=== PATIENT | male | born 1955 | race Caucasian/White ===

== ENCOUNTER 2024-01-26 12:55 | Emergency (ER) | payer MEDICARE ==
[~2024-01-26] VITALS: Ht 180.3 cm; Wt 106.6 kg
--- NOTE | 2024-01-26 13:15 | ERN ---
ED Note History of Present Illness Stated Complaint: DIZZINESS Chief Complaint: Dizzy/Light Headed Time Seen by MD: 12:58 Dictation: PATIENT IS A 68-YEAR-OLD MALE COMING IN TODAY WITH HIS WITH COMPLAINTS OF HEART ARRHYTHMIA, PROBABLY MY ATRIAL FIBRILLATION ACTING UP AT MIDNIGHT LAST NIGHT. HE ALSO STATES HIS CALLED HIM MILD DIZZINESS HOWEVER HE IS NEUROLOGICALLY INTACT WITH GAIT STEADY TO ROOM 10. NO CHEST PAIN NO BACK PAIN NO SOB NO EDEMA AT THIS TIME. HE IS ALREADY ON METOPROLOL 25 MG B.I.D. FROM HIS BREWING TECHNICIAN'S IN [place] NO LOCAL DOCTOR, STATES HE IS A [place]. HISTORY OF PACEMAKER Allergies: Coded Allergies: No Known Drug Allergies (Unverified Allergy, Unknown, 01/26/24) Past Medical History Past Medical History: A-Fib, Hypothyroid Additional Past Medical Hx: PACEMAKER, BILAT KNEE REPLACEMENT, SLEEP APNEA Surgical History: Other Surgical History Other: INGUINAL HERNIA, AAA RN Note Reviewed/Agreed w/PFSH: Yes Review of System Dictation CONSTITUTIONAL: NEGATIVE EXCEPT FOR HPI HEAD/FACE: NEGATIVE EXCEPT FOR HPI EENT: NEGATIVE EXCEPT FOR HPI RESPIRATORY: NEGATIVE EXCEPT FOR HPI ATRIAL FIB GASTROINTESTINAL/ABDOMINAL: NEGATIVE EXCEPT FOR HPI GENITOURINARY: NEGATIVE EXCEPT FOR HPI MUSCULOSKELETAL: NEGATIVE EXCEPT FOR HPI INTEGUMENTARY: NEGATIVE EXCEPT FOR HPI NEUROLOGICAL/PSYCH: NEGATIVE EXCEPT FOR HPI DIZZINESS HEMATOLOGIC/LYMPHATIC: NEGATIVE EXCEPT FOR HPI ALL SYSTEMS NEGATIVE, EXCEPT NOTED ABOVE. 13 POINT REVIEW OF SYSTEMS ASSESSED AND ALL NEGATIVE EXCEPT FOR ABOVE. Initial Vital Sign VS Vital Signs Date Time Temp Pulse Resp B/P (MAP) Pulse Ox O2 Delivery O2 Flow Rate FiO2 01/26/24 12:57 98.2 65 16 100/66 96 Room Air 01/26/24 13:16 0 21 Physical Exam Dictation VITAL SIGNS REVIEWED GENERAL APPEARANCE: ALERT, ORIENTED X 3, NO ACUTE DISTRESS, WELL DEVELOPED, NOURISHED. HEAD AND FACE: NON-TRAUMATIC. EYES: PERRL, PINK CONJUNCTIVAS, EYELID NO TRAUMA, ANTERIOR CHAMBER WITH ARCUS SENILIS. EARS: PINNAS INTACT AND NO SIGNS OF TRAUMA OR ERYTHEMA EAR CANALS CLEAR AND NO DISCHARGE TM NO ERYTHEMA NOSE: NO DISCHARGE, NO BLEEDING. OROPHARYNX: MOUTH NORMAL, TONGUE PINK, PHARYNX CLEAR,NO ERYTHEMA, TONSILS NO EXUDATES, NO ABSCESSES NOTED, MUCOUS MEMBRANE MOIST NECK: SUPPLE, NON-TENDER, NO THYROMEGALY, NO MASSES, NO JVD, NO BRUITS BREAST:DEFERRED CHEST:NO TENDERNESS, NO CREPITUS, NO PARADOXICAL MOVEMENT, NO RETRACTIONS LUNGS:CLEAR, WELL-VENTILATED, SYMMETRIC, NO RALES, NO WHEEZING, NO RHONCHI, NO STRIDOR, GOOD BREATH SOUNDS BILATERALLY HEART: REGULAR, NO MURMUR, NO GALLOPS VASCULAR: NO PERIPHERAL EDEMA, ABDOMEN: SOFT, POSITIVE BOWEL SOUNDS, NONDISTENDED, NO GUARDING, NONTENDER, NO REBOUND, NO MASSES NO HEPATOMEGALY, NO SPLENOMEGALY, NO MOREAU'S SIGN, NO HERNIAS. RECTAL: DEFERRED GENITAL: DEFERRED NEUROLOGICAL: NORMAL SPEECH, MOTOR FUNCTION INTACT, SENSORY FUNCTION INTACT NIH IS 0 MUSCULOSKELETAL: NECK NONTENDER, FULL RANGE OF MOTION, BACK NONTENDER, FULL RANGE OF MOTION, EXTREMITIES: NONTENDER, FULL RANGE OF MOTION SKIN: COLOR PINK, DRY, NO TURGOR, NO RASH, NO LACERATIONS, NO ABRASIONS, NO CONTUSIONS. LYMPHATIC: DEFERRED Results (Laboratory/Radiology) Laboratory/Radiology Laboratory Tests Test 01/26/24 13:15 White Blood Count 7.8 K/uL (4.8-10.8) Red Blood Count 4.44 MIL/uL (4.50-6.20) L Hemoglobin 14.5 g/dL (14.0-18.0) Hematocrit 42.0 % (42-54) Mean Corpuscular Volume 94.6 fL (79-99) Mean Corpuscular Hemoglobin 32.7 pg (27.0-33.0) Mean Corpuscular Hemoglobin Concent 34.5 g/dL (32.0-36.0) Red Cell Distribution Width 13.0 % (11.0-15.5) Platelet Count 233 K/uL (130-400) Mean Platelet Volume 9.4 fL (7.5-10.5) Immature Granulocyte % (Auto) 0.1 % (0-1) Neutrophils (%) (Auto) 64.7 % (40.0-77.0) Lymphocytes (%) (Auto) 21.1 % (21.0-51.0) Monocytes (%) (Auto) 11.1 % (3.0-13.0) Eosinophils (%) (Auto) 2.2 % (0.0-8.0) Basophils (%) (Auto) 0.8 % (0.0-5.0) Neutrophils # (Auto) 5.0 K/uL (1.8-7.7) Lymphocytes # (Auto) 1.6 K/uL (1.0-4.8) Monocytes # (Auto) 0.9 K/uL (0.1-1.0) Eosinophils # (Auto) 0.17 K/uL (0.00-0.70) Basophils # (Auto) 0.06 K/uL (0.00-0.20) Absolute Immature Granulocyte (auto 0.01 K/uL (0-1) Nucleated Red Blood Cells 0.0 % (0.0-0.19) Sodium Level 133 mmol/L (136-145) L Potassium Level 4.2 mmol/L (3.5-5.1) Chloride Level 100 mmol/L (101-111) L Carbon Dioxide Level 30 mmol/L (21-32) Blood Urea Nitrogen 19 mg/dL (7-18) H Creatinine 1.0 mg/dL (0.5-1.3) Glomerular Filtration Rate Calc 81 mL/min (>90) Random Glucose 100 mg/dL (70-105) Total Calcium 9.4 mg/dL (8.5-10.1) Magnesium Level 2.10 mg/dL (1.80-2.40) Troponin I High Sensitivity < 4 ng/L (4-75) L B-Type Natriuretic Peptide 137 pg/mL (0-100) H INDICATION: SHORTNESS A BREATH. HISTORY OF ATRIAL FIBRILLATION TECHNIQUE: CHEST 1VW COMPARISON: None FINDINGS/IMPRESSION: Prominent bilateral interstitial markings which may represent bronchitis or vascular congestion in the proper clinical setting. Left-sided pacemaker is seen. Cardiac silhouette is within normal limits. Mild degenerative changes of the spine. The visualized upper abdomen appears unremarkable. Labs Reviewed?: Yes ED Course ED Course Orders Procedure Category Date Status Time Cbc With Differential LAB 01/26/24 Complete 13:10 B-Type Natriuretic LAB 01/26/24 Complete Peptide 13:10 Chest 1vw RAD 01/26/24 Resulted 13:10 12 Lead Ekg Tracing- EKG 01/26/24 Resulted Technical 13:10 Magnesium LAB 01/26/24 Complete 13:10 Troponin I High LAB 01/26/24 Complete Sensitivity 13:10 Basic Metabolic Panel LAB 01/26/24 Complete 13:10 Orthostatic Vital CPOE 01/26/24 Transmitted Signs 15:16 Vital Signs Date Time Temp Pulse Resp B/P (MAP) Pulse Ox O2 Delivery O2 Flow Rate FiO2 01/26/24 15:42 98.2 86 18 119/73 96 Room Air* 0 01/26/24 15:41 98.2 81 18 119/82 96 Room Air* 0 21 01/26/24 15:40 98.2 82 18 106/80 96 Room Air* 0 21 01/26/24 13:16 98.2 84 18 109/72 94 Room Air* 0 21 01/26/24 12:57 98.2 65 16 100/66 96 Room Air FIFTEEN 15 SPOKE WITH , BREWING TECHNICIAN'S AND REVIEWED EKG LABS PATIENT HAS HISTORY TO INCLUDE PACEMAKER/ATRIAL FIBRILLATION. HE SAID TO CHECK ORTHOPEDICS AND DID NOT RECOMMEND ANY RHYTHM MEDICATIONS AT THIS TIME HOWEVER SAID TO CHECK ORTHOSTATICS IF SYMPTOMATIC ADMIT IF NOT OTHERWISE HE WILL SEE PATIENT NEXT WEEK. FIFTEEN 50, ORTHOSTATIC BLOOD PRESSURE CHECKS 106/80 WITH A HEART RATE OF 82 LYING, 119/82 WITH A HEART RATE OF 81 SITTING, HEART RATE 83, BLOOD PRESSURE 119/73 STANDING. NO ACTIVITY CHANGES PATIENT STATES HE IS READY TO GO HOME WE WILL BE GIVEN THE NAME OF DR. SHERMAN TO FOLLOW UP IN THE WEEK Medical Decision Making MDM MDM: DIFFERENTIAL DIAGNOSIS: ACS/AMI/CHF/DIZZINESS/ELECTROLYTE IMBALANCE/DEHYDRATION/PACEMAKER FAILURE/AFIB RVR RATIONALE: TESTS CONSIDERED AND ORDERED SECONDARY TO SHARED DECISION MAKING INCLUDE: RADIOLOGY/LABS/EKG PREVIOUS OUTSIDE RECORDS REVIEWED: OLD ER VISITS. REVIEWED RISK OF COMPLICATION AND/OR MORBIDITY OR MORTALITY OF PATIENT MANAGEMENT: NONE MEDICATIONS-PER MEDICATION RECONCILIATION NEED FOR HOSPITALIZATION: PATIENT DOES NOT MEET CRITERIA FOR HOSPITALIZATION. NONE NEED FOR EMERGENCY MAJOR/MINOR SURGERY: NO THERE ARE NO SOCIAL CONCERNS WITH THIS PATIENT. PRESCRIPTION DRUG MANAGEMENT NO PRESCRIPTION AT THIS TIME, PATIENT GIVEN THE NAME OF THE BREWING TECHNICIAN'S TO FOLLOW UP WITH NEXT WEEK. PRESCRIPTIONS WILL INCLUDE SYMPTOMATIC CARE PATIENT'S PRIOR EXTERNAL MEDICAL RECORDS FROM OTHER ER VISITS WERE REVIEWED BY ME INDICATED. PRIOR TESTING AND RESULTS FROM PREVIOUS VISITS WERE REVIEWED. PRIOR TESTS WERE TAKEN INTO ACCOUNT WITH MEDICAL DECISION MAKING AND RESOURCE UTILIZATION, INDEPENDENT HISTORIAN/HISTORIANS WERE USED TO OBTAIN COMPLETE MEDICAL HISTORY. I INDEPENDENTLY INTERPRETED THE TEST THAT WERE PERFORMED, RESULTS WERE REVIEWED BY ME AND CONSIDERED FINDINGS ON RADIOLOGY IF ORDERED. MEDICAL MANAGEMENT AND EXAMINATION INTERPRETATION DISCUSSIONS WERE HAD BY ME WITH OTHER QUALIFIED HEALTHCARE PROFESSIONALS INDICATED FOR THE PATIENT'S CARE. DX & DISP Disposition: Discharge Departure Impression: Primary Impression: Atrial fibrillation with normal ventricular rate Additional Impressions: Pacemaker, Dizziness, Hyponatremia Condition: Stable Additional Instructions: FOLLOW-UP WITH PRIMARY CARE PROVIDER IN 1 TO 2 DAYS. TAKE MEDICATIONS DI RECTED HERE IN THE EMERGENCY ROOM. OKAY TO CONTINUE HOME MEDICATIONS UNLESS OTHERWISE DISCUSSED DURING YOUR VISIT IN THE EMERGENCY ROOM TODAY. RETURN TO YOUR NEAREST EMERGENCY ROOM IF SYMPTOMS WORSEN OR IF THERE IS NO IMPROVEMENT. CALL 911 IF YOU NEED IMMEDIATE ASSISTANCE. TAKE TYLENOL OR MOTRIN QHAR-NCV-REYOBVA NEEDED AND IF NO CONTRAINDICATIONS ARE PRESENT. INCREASE ORAL HYDRATION. A WOUND CULTURE OR URINE CULTURE WAS ORDERED HERE IN THE EMERGENCY ROOM DEPARTMENT PLEASE FOLLOW-UP WITH PRIMARY CARE PROVIDER AND ADVISE THEM TO GET REPEAT PORTS FROM OUR FACILITY. IF YOU HAD ANY OLIVERIO WRAP/SPLINTS THAT WERE APPLIED HERE, PLEASE DO NOT REMOVE THEM UNTIL YOU SEE YOUR PRIMARY CARE OR SPECIALTY. CONTINUE ALL MEDICATIONS AND TREATMENTS AT HOME. CALL BREWING TECHNICIAN FOR APPOINTMENT ON SATURDAY FOR APPOINTMENT. Referrals: SELF,REFERRAL (PCP) CHRISTINA HILLS MD Time of Disposition: 15:52 I have reviewed the case, and I agree with, Diagnosis and Plan I performed a substantive portion of the visit. I have reviewed and personally made and approve the management plan that is documented in the notes by myself with KYLAH/resident. I acknowledged full responsibility for the patient's management plan. YUNIOR NAILS NP Jan 26, 2024 13:14 SAW ANG DO Jan 28, 2024 11:06
[2024-01-26 13:35] LABS: BASOPHILS # (AUTO) 0.06 K/uL (0.00-0.20); BASOPHILS % (AUTO) 0.8 % (0.0-5.0); EOSINOPHILS # (AUTO) 0.17 K/uL (0.00-0.70); EOSINOPHILS % (AUTO) 2.2 % (0.0-8.0); IMMATURE GRANULOCYTE ABSOLUTE 0.01 K/uL (0-1); LYMPHOCYTES # (AUTO) 1.6 K/uL (1.0-4.8); LYMPHOCYTES % (AUTO) 21.1 % (21.0-51.0); MEAN CORPUSCULAR HEMOGLOBIN 32.7 pg (27.0-33.0); MEAN CORPUSCULAR HGB CONC 34.5 g/dL (32.0-36.0); MEAN CORPUSCULAR VOLUME 94.6 fL (79-99); MONOCYTES # (AUTO) 0.9 K/uL (0.1-1.0); MONOCYTES % (AUTO) 11.1 % (3.0-13.0); NEUTROPHILS % (AUTO) 64.7 % (40.0-77.0); PLATELET COUNT (AUTO) 233 K/uL (130-400); RED BLOOD CELL COUNT(AUTO) 4.44 MIL/uL (4.50-6.20); WHITE BLOOD COUNT (AUTO) 7.8 K/uL (4.8-10.8)
[2024-01-26 13:42] LABS: MAGNESIUM 2.1 mg/dL (1.80-2.40); POTASSIUM 4.2 mmol/L (3.5-5.1)
[2024-01-26 14:03] LABS: B-TYPE NATRIURETIC PEPTIDE 137 pg/mL (0-100)
--- NOTE | 2024-01-26 14:03 | HMCIMG ---
INDICATION: SHORTNESS A BREATH. HISTORY OF ATRIAL FIBRILLATION TECHNIQUE: CHEST 1VW COMPARISON: None FINDINGS/IMPRESSION: Prominent bilateral interstitial markings which may represent bronchitis or vascular congestion in the proper clinical setting. Left-sided pacemaker is seen. Cardiac silhouette is within normal limits. Mild degenerative changes of the spine. The visualized upper abdomen appears unremarkable.
[2024-01-26 15:42] VITALS: BP 119/73; PULSE 86; RESP 18; TEMP 98.2; O2SAT 96
--- NOTE | 2024-01-27 07:37 | EKG ---
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
== END 2024-01-26 16:07 | disposition home or self-care (01) ==
LOC: EDH 12:55
DX: I48.91 Unspecified atrial fibrillation (principal); R42 Dizziness and giddiness; E87.1 Hypo-osmolality and hyponatremia; E03.9 Hypothyroidism, unspecified; Z95.0 Presence of cardiac pacemaker; Z96.653 Presence of artificial knee joint, bilateral
CPT/HCPCS: 36415; 71045; 80048; 83735; 83880; 84484; 85025; 93005; 99285